=== PATIENT | male | born 1985 | race Caucasian/White ===

== ENCOUNTER 2017-10-26 13:16 | Outpatient (CLI) | payer BC ==
[2017-10-26 13:47] LABS: #Basophils 0.1 thou/uL (0.0-0.2); #Eosinphils 0.4 thou/uL (0.0-0.7); #Lymphocytes 2.1 thou/uL (1.20-3.40); #Monocytes 0.8 thou/uL (0.11-0.59); #Neutrophils 2.9 thou/uL (1.40-6.50); %Basophils 2.1 % (0.0-1.0); %Eosinophils 6.4 % (0.0-10.0); %Lymphocytes 32.9 % (21.0-51.0); %Monocytes 12.3 % (0.0-10.0); %Neutrophils 46.3 % (42.0-75.0); Hemoglobin 14.1 g/dL (14.0-18.0); Mean Corpuscular HGB CONC 33.6 g/dL (32.0-36.0); Mean Corpuscular Hemoglobin 31.2 pg (27.0-31.0); Mean Platelet Volume 6.7 fL (7.4-10.4); Platelet Count 264 thou/uL (130-400); RBC Distribution Width 11.7 % (11.5-14.5); Red Blood Cell (RBC) Count 4.52 mill/uL (4.70-6.10); White Blood Cell (WBC) Count 6.2 thou/uL (4.8-10.8)
[2017-10-26 14:11] LABS: Anion Gap 7 mmol/L (10-20); BUN (Urea Nitrogen) 14 mg/dL (8.9-20.6); Calc. Creatinine Clearance 0 mL/min (70-130); Calcium 9.6 mg/dL (7.8-10.44); Carbon Dioxide 30 mmol/L (22-29); Chloride 104 mmol/L (98-107); Estimated GFR-MDRD 80; Glucose 87 mg/dL (70-105); Potassium 4.4 mmol/L (3.5-5.1); Sodium 137 mmol/L (136-145)
== END 2017-10-26 13:17 | disposition home or self-care (01) ==
LOC: LABBT 13:16
PROVIDERS: ATTEND Surgery
DX: Z01.812 Encounter for preprocedural laboratory examination (principal); K60.3 Anal fistula
CPT/HCPCS: 80048; 85025

== ENCOUNTER 2017-10-30 06:06 | Day surgery (SDC) | payer BC ==
[2017-10-26 13:32] VITALS: BMI 24.8
[2017-10-30] MEDS ORDERED: Ondansetron HCl/PF 4 MG/2 ML Vial ONE ×2 (06:10→13:51)
[2017-10-30] MEDS ORDERED: Fentanyl 100 MCG/2 ML VIAL ONE (06:10)
[2017-10-30] MEDS ORDERED: Midazolam HCl 2 mg/2 ml Vial ONE ×2 (06:10→07:11)
[2017-10-30] MEDS ORDERED: CEFAZOLIN/Water 2 GM/20 ML SYRINGE ONE (06:31)
[2017-10-30] MEDS ORDERED: metroNIDAZOLE 500 MG/100 ML BAG ONE (06:31)
[2017-10-30] MEDS ORDERED: Bupivacaine/Epinephrine 0.25% 30 ML VIAL ONE (06:59)
[2017-10-30] MEDS ORDERED: Lidocaine 2% 10 ML INJ ONE (06:59)
[2017-10-30] MEDS ORDERED: Bacitracin Zinc Ointment 30 gm TUBE ONE (08:34)
[2017-10-30] MEDS ORDERED: ePHEDrine/0.9% NaCl/PF SYRINGE 50 mg/10 ml ONE (13:51)
[2017-10-30] MEDS ORDERED: Lidocaine 1% PF 5 ML VIAL ONE (13:51)
[2017-10-30] MEDS ORDERED: PROPOFOL 200 MG/20 ML VIAL ONE (13:51)
[2017-10-30] MEDS ORDERED: Dexamethasone 20 MG/5 ML VIAL ONE (13:51)
--- NOTE | 2017-11-02 05:03 | PDOC.OP ---
Operative Note - Operative Note Operative Note: PROCEDURE: Examination under anesthesia with fistulotomy and seton placement DATE OF PROCEDURE: 10/30/2017 SURGEON: Rina Nix M.D. PREOPERATIVE DIAGNOSES: Anal fistula POSTOPERATIVE DIAGNOSIS: Anal fistula HISTORY: Patient presented with perianal discomfort and drainage and on examination was found to have a chronic wound in the right anterior perianal area a cord was felt in the subcutaneous tissues extending toward the anal canal and it was felt that he likely had a long anal fistula. Recommendation was made to proceed to the operating for exam under anesthesia and fistulotomy if the fistula was superficial versus seton placement if the fistula was transmuscular. FINDINGS: Long anal fistula with fairly large chronic abscess cavity at the exit site. Greater than one third of external sphincter muscle traversed so seton was placed to transmuscular portion. PROCEDURE IN DETAIL: After informed consent was obtained and appropriate preoperative antibiotics administered patient was taken to the operating room he was placed in supine position and anesthesia was administered he was then placed in lithotomy position and prepped and draped in standard sterile fashion. An anoscope was placed to examine the anterior portion of the anal canal and an Angiocath placed into the external opening and hydrogen peroxide infused. The internal opening of the fistula was easily seen. This was cannulated and a lacrimal probe passed to the external opening. Local anesthesia was infused for a field block. The distal portion of the fistula was opened revealing a long fistulous tract. The proximal portion of the fistulous tract traversed external sphincter muscle. This did not appear to encircle the entire external sphincter but did appear to traverse more than one third of this so the decision was made to place a seton to this portion. A 0 silk suture was secured to the lacrimal probe and pulled back through the fistulous tract. This was secured and attention turned to the external portion of the fistulous track. This appeared chronic and granulating and ended in a chronic abscess cavity. The abscess cavity was unroofed and debrided with a rongeur as was the external portion of the fistulous tract. Hemostasis was verified. Additional local anesthesia was infused for postoperative pain control. Bacitracin and gauze was placed to the external open portion of the wound and the patient was extubated and taken to recovery in good condition. Estimated blood loss is minimal. There were no complications. There were no specimens.
== END 2017-10-30 10:40 | disposition home or self-care (01) ==
LOC: SDC 06:06
PROVIDERS: ATTEND Surgery
PROC: 0DBQ0ZZ Excision of Anus, Open Approach (ICD-10-PCS; principal; 2017-10-30)
DX: K60.3 Anal fistula (principal); E07.9 Disorder of thyroid, unspecified; Z79.899 Other long term (current) drug therapy
CPT/HCPCS: J1100; J2001; J2250; J2405; J2704; J3010